=== PATIENT | female | born 2005 | race Caucasian/White ===

== ENCOUNTER 2025-08-18 15:12 | Emergency (ER) | payer OTHER ==
[~2025-08-18] VITALS: Ht 170.2 cm; Wt 56.2 kg
[2025-08-18] MEDS ORDERED: KETOROLAC TROMETHAMINE 30 MG INJ ONE (16:53)
[2025-08-18] MEDS ORDERED: METOCLOPRAMIDE HCL 10 MG/2 ML VIAL ONE (16:54)
[2025-08-18] MEDS ORDERED: diphenhydrAMINE 50 MG/1 ML VIAL ONE (16:54)
[2025-08-18 17:01] LABS: *BILIRUBIN,URIN NEGATIVE (NEGATIVE); *BLOOD, URINE NEGATIVE (NEGATIVE); *CLARITY,URINE CLEAR (CLEAR); *COLOR,URINE YELLOW (YELLOW); *KETONES,URINE NEGATIVE (NEGATIVE); *PROTEIN,URINE NEGATIVE (NEGATIVE); *UROBILINOGEN,URINE 0.2 E.U./dl (NORMAL); LEUKOCYTE ESTERASE ,URINE NEGATIVE (NEGATIVE); NITRITE, URINE NEGATIVE (NEGATIVE); UGLUCOSE NEGATIVE (NEGATIVE)
[2025-08-18 17:03] LABS: PLATELET COUNT (AUTO) 276 K/uL (179-408); RED BLOOD CELL COUNT(AUTO) 4.65 MIL/uL (3.63-4.92); RED CELL DISTRIBUTION WIDTH 16.5 % (12.3-17.7); WHITE BLOOD COUNT (AUTO) 5.4 K/uL (3.8-11.8)
[2025-08-18] MEDS: IV NORMAL SALINE 1000 ML BAG IV ONE (17:07)
[2025-08-18] MEDS: diphenhydrAMINE 50 MG/1 ML VIAL IV ONE (17:07)
[2025-08-18] MEDS: METOCLOPRAMIDE HCL 10 MG/2 ML VIAL IV ONE (17:07)
[2025-08-18] MEDS: KETOROLAC TROMETHAMINE 15 MG INJ IVP ONE (17:07)
[2025-08-18 17:11] LABS: CREATININE 0.7 mg/dL (0.6-1.3); SODIUM SERUM 144 mmol/L (136-145); UREA NITROGEN, BLOOD 10 mg/dL (7-18)
[2025-08-18 17:17] LABS: ASPARTATE AMINOTRANSFERASE 12 U/L (15-37); TOTAL PROTEIN, SERUM 8.0 g/dL (6.4-8.2)
[2025-08-18 17:22] VITALS: BP 100/70
[2025-08-18 17:25] LABS: PREGNANCY TEST SERUM QUAN < 1 miul/L (0-6)
[2025-08-18] MEDS ORDERED: NAPR-1477 PO (18:42)
[2025-08-18] MEDS ORDERED: SUMA100T16 PO (18:42)
[2025-08-18 19:00] VITALS: BP 100/70; O2SAT 100
== END 2025-08-18 19:00 | disposition home or self-care (01) ==
LOC: ER 15:12
DX: G43.909 Migraine, unspecified, not intractable, without status migrainosus (principal); R10.32 Left lower quadrant pain; H53.459 Other localized visual field defect, unspecified eye; K21.9 Gastro-esophageal reflux disease without esophagitis
CPT/HCPCS: 36415; 70486; 74021; 76856; 85025; A4606; A4663; J1200; J1885; J2765; J7040